=== PATIENT | female | born 1960 | race Caucasian/White ===

== ENCOUNTER 2024-10-30 05:31 | Day surgery (SDC) | payer OTHER, SELFPAY ==
[2024-10-21 14:14] VITALS: BMI 33.7
--- NOTE | 2024-10-21 14:21 | PC.NURSE ---
Report to the Outpatient Waiting Room, entrance under the green pavilion located off [facility], at time _0845_ on date _[id number]_. Planned Procedure Time: _1045_.? Time changes happen often and if your time is changed the preop area will call you the afternoon before. - You and your visitor will be asked to self-screen and do not enter if you have any COVID symptoms. Please call surgeon if you need to reschedule. - A mask is optional within the hospital at this time. Patients may have clear liquids (water, carbonated beverages, clear teas, apple juice) until 3 hours prior to surgery with a maximum of 20 ounces. - No food from midnight until time of surgery and no smoking, or chewing tobacco (or any form of nicotine). No chewing gum, candy or mints. Take only the following medications with a SIP of water on the morning of surgery: __Bupropion and Citalopram DO NOT STOP ANY OF YOUR OTHER PRESCRIPTION MEDICATIONS PRIOR TO SURGERY EXCEPT THE FOLLOWING Hold all vitamins and supplements for 3 days per anesthesiologist. Medications to discontinue per physician Date to take last [id number] Wakefield's office and inquire if need to hold Diclofenac. Please no make-up, nail marshallese, hairspray, perfume, deodorant, or body powder the day of surgery.? No jewelry (including any body piercings) or valuables the day of surgery, leave them at home.? Please take a shower or bath the night before, or the morning of, surgery with an antibacterial soap.? Wear comfortable, loose fitting clothing.? - Jewelry must be removed prior to entering the operating room.? Rings and piercings that are not removed may be cut off. - The hospital will not accept responsibility for valuables.? - Please leave all valuables, including medications, at home the day of surgery. If you are going home after surgery, a licensed company truck driver must drive you home.? - NO public transportation without another adult if you receive anesthesia. - We recommend that an adult stay with you for 24 hours following discharge. - We also recommend that you do not drive, make important decision, drink alcoholic beverages, or take any drugs that were not prescribed by your health care provider for at least 24 hours after your discharge time. Follow any additional instructions given to you from your surgeon. Telephone instructions given to __Mini___and asked if any additional questions and then verbalized understanding. Patient advised to call surgeon office or pre surgery nurse liaison [phone] if any additional questions.
--- NOTE | 2024-10-24 17:37 | PM.IMHP ---
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 Review of Systems Review of Systems: All systems reviewed & are unremarkable except as noted in HPI and below PMFSH Social History Social History Smoking packs per day: 1 Smoking cigarettes per day: 20.0 Years smoked: 20 Smoking pack-years: 20.00 Smoking status: Former smoker Tobacco type: cigarettes Smoking end date: 10/21/04 Alcohol intake: current Drinks per week: 5 Living arrangements: with family Spiritual care concerns: No Meds Home Medications and Allergies Home Medications ?Medication ?Instructions ?Recorded ?Confirmed ?Type atorvastatin 20 mg tablet 20 mg PO DAILY 10/21/24 10/21/24 History bupropion HCl 150 mg 24 hr tablet, 150 mg PO DAILY 10/21/24 10/21/24 History extended release citalopram 40 mg tablet 40 mg PO DAILY 10/21/24 10/21/24 History diclofenac sodium 75 mg 75 mg PO DAILY 10/21/24 10/21/24 History tablet,delayed release fezolinetant 45 mg tablet (Veozah) 45 mg PO DAILY 10/21/24 10/21/24 History lysine 1,000 mg tablet 1,000 mg PO DAILY 10/21/24 10/21/24 History gmthqveg-nhfi-yfqc 8 mg-folic 400 1 tablet PO DAILY 10/21/24 10/21/24 History mcg-K 50 mcg-lutein 300 mcg tablet (Centrum Silver Women) Allergies Allergy/AdvReac Type Severity Reaction Status Date / Time Penicillins Allergy Intermediate Rash Verified 10/21/24 14:11 Exam Narrative: NAD A+O x3 normal breathing Assessment and Plan Assessment and plan (1) Urge incontinence: Code(s): N39.41 - Urge incontinence Status: Acute Assessment and Plan: InterStim implant
--- NOTE | ~2024-10-30 | XR_ITS ---
XR fluoroscopy no charge Indication: Transsacral neurostimulator lead placement TECHNIQUE: Fluoroscopy used during Transsacral neurostimulator lead placement performed by [Jose Guadalupe Wakefield MD] on 10/30/2024. 24 seconds of fluoroscopy with 2 fluoroscopic images captured. FINDINGS: Correlate with procedure note. IMPRESSION: Fluoroscopy used during Transsacral neurostimulator lead placement. Reviewed, dictated and finalized at location L. LAB RADIOLOGY TECHNICIAN
--- OUTSIDE RECORDS SUMMARY | 2024-10-30 05:37 | XMS_ITS | Clinical Summary ---
Author Organization [facility] Address [address] [place] [address] Phone Care Team Providers Care Battery Parts Assembler Name Role Phone Saroj Glynn MD Primary Care Provider [phone] Allergies Active Allergy Reactions Criticality Noted Date Comments Penicillins Hives 06/04/2017 Medications sertraline (ZOLOFT) 100 MG Tablet Take 100 mg by mouth daily. Active traZODone (DESYREL) 50 MG Tablet Take 50 mg by mouth nightly. Active diclofenac (VOLTAREN) 75 MG Tablet Delayed Response Take 75 mg by mouth 3 times daily. Active solifenacin (VESICARE) 10 MG Tablet Take 10 mg by mouth daily. Active cyclobenzaprine (FLEXERIL) 10 MG Tablet Take 10 mg by mouth 3 times daily as needed for Muscle spasms. Active citalopram (CELEXA) 20 MG Tablet Take 40 mg by mouth daily. Active clotrimazole-be tamethasone (LOTRISONE) 1-0.05 % Cream Apply 2 times daily. . Active adapalene (DIFFERIN) 0.1 % Gel Apply nightly. use small amount as directed Active Polyethylene Glycol 3350 (MIRALAX PO) Take by mouth. Active Lysine Acetate 500 MG Tablet Take by mouth. Active Multiple Vitamins-Minera ls (OCUVITE PO) Take by mouth. Active Multiple Vitamins-Minera ls (MULTIVITAMIN PO) Take by mouth. Active Family History Medical History Relation Name Comments Cancer Maternal Grandfather Relation Name Status Comments Maternal Grandfather Social History Tobacco Use Types Packs/Day Years Used Date Smoking Tobacco: Former Smokeless Tobacco: Never Alcohol Use Standard Drinks/Week Comments Yes 0 (1 standard drink = 0.6 oz pur e alcohol) Comments No Sex and Gender Information Value Date Recorded Sex Assigned at Not on file Legal Sex Female 12:12 PM CDT Gender Identity Not on file Sexual Orientation Not on file Last Filed Vital Signs Vital Sign Reading Time Taken Comments Blood Pressure 116/70 06/10/2017 4:08 PM CDT Pulse 59 06/10/2017 4:08 PM CDT Temperature 36.6 C (97.9 F) 06/10/2017 4:08 PM CDT Respiratory Rate - - Oxygen Saturation 96% 06/10/2017 4:08 PM CDT Inhaled Oxygen Concentration - - Weight 90.7 kg (200 lb) 06/10/2017 4:08 PM CDT Height 160 cm (5' 3 ) 06/10/2017 4:08 PM CDT Body Mass Index 35.43 06/10/2017 4:08 PM CDT Plan of Treatment Health Maintenance Due Date Last Done Comments Hepatitis C Virus (HCV) Screening 1962 TdaP Immunization 1962 Pap Smear 11/24/1983 Cervical Cancer Screening (CCS) 1992 HPV/Cotest 1992 Colonoscopy 11/24/2007 Colorectal Cancer Screening 11/24/2007 Cologuard 2012 Immunochemical Fecal Occult Blood 2012 Mammogram 2012 Pneumococcal Immunization (5 0+ years) (1 of 1 - PCV) 2012 Zoster Immunization (1 of 2) 2012 Influenza Immunization (#1) 2024 SARS-COV-2 Immunization ( season) 2024 Respiratory Syncytial Virus (RSV) Immunization (Adult) (1 - 1-dose 75+ series) 2037 Hepatitis B Immunization Aged Out No longer eligible based on patient's age to complete this topic Meningococcal Immunization (ACWY) Aged Out No longer eligible based on patient's age to complete this topic Pneumococcal Immunization Combined Aged Out No longer eligible based on patient's age to complete this topic Rotavirus Immunization Aged Out No lo nger eligible based on patient's age to complete this topic Insurance [employer] Care Teams Battery Parts Assembler Relationship Specialty Start Date End Date Saroj Glynn MD [address] [address] PCP - General Family Medicine 06/04/17
--- OUTSIDE RECORDS SUMMARY | 2024-10-30 05:37 | XMS_ITS | Referral Summary ---
Author Organization [facility] Address [address] [place] [address] Care Team Providers Care Worksite Wellness Practitioner Name Role Phone Saroj Glynn MD Primary Care Provider [phone] Allergies Active Allergy Reactions Criticality Noted Date Comments Penicillins Hives Medium 06/04/2017 Medications multivitamin with minerals tabletIndicatio ns:Vitamin Deficiency Prevention Take 1 tablet by mouth every morning Active citalopram (CeleXA) 20 mg tabletIndicatio ns:Anxiety with Depression,israel r depressive disorder Take 20 mg by mouth every morning 3 04/18/2019 Active buPROPion XL (WELLBUTRIN XL) 150 mg 24 hr tabletIndicatio ns:Anxiety with Depression Take 150 mg by mouth every morning 09/05/[address] (VOLTAREN) 75 mg EC tabletIndicatio ns:Osteoarthrit is Take 75 mg by mouth every morning Active lysine 500 mg tabletIndicatio ns:prevents mouth sores Take 500 mg by mouth every morning Active vit C,T-Wt-mdcae-harjinder tein-zeaxan [id number] ss-eapy-kh-mg capsuleIndicati ons:eye health Take 1 capsule by mouth every morning Active HYDROcodone-silvia taminophen (NORCO) 5-325 mg per tabletIndicatio ns:Pain Take 1-2 tablets by mouth every 6 (six) hours as needed for pain 20 tablet 01/25/2020 Active Active Problems Problem Noted Date Diagnosed Date Meralgia paresthetica of left side 09/22/2019 Overview (09/22/2019): Added automatically from request for surgery [id number] Social History Tobacco Use Types Packs/Day Years Used Date Smoking Tobacco: Former Cigarettes 2 33 1 977 - 2010 Smokeless Tobacco: Never Alcohol Use Standard Drinks/Week Comments Yes 0 (1 standard drink = 0.6 oz pur e alcohol) SOCIAL AUDIT-C Answer Date Recorded Frequency of Alcohol Consumption Never 02/24/2019 Average Number of Drinks Not on file 019 Frequency of Binge Drinking Not on file 02/07 Comments No Sex and Gender Information Value Date Recorded Sex Assigned at Not on file 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 Gender Identity Not on file Sexual Orientation Not on file Last Filed Vital Signs Vital Sign Reading Time Taken Comments Blood Pressure 119/76 01/26/2020 1:20 PM CDT Pulse 67 01/26/2020 1:30 PM CDT Temperature 36.8 C (98.2 F) 01/26/2020 12:50 PM CDT Respiratory Rate 18 01/26/2020 1:30 PM CDT Oxygen Saturation 97% 01/26/2020 1:30 PM CDT Inhaled Oxygen Concentration - - Weight 81.2 kg (179 lb) 11/17/2019 4:15 PM CDT Height 162.6 cm (5' 4 ) 11/17/2019 4:15 PM CDT Body Mass Index 30.73 11/17/2019 4:15 PM CDT Plan of Treatment Not on file Insurance [facility] Care Teams Worksite Wellness Practitioner Relationship Specialty Start Date End Date Saroj Glynn MD [address] [place] [address] PCP - General Family Practice 09/19/18
--- OUTSIDE RECORDS SUMMARY | 2024-10-30 05:37 | XMS_ITS | Clinical Summary ---
Author Organization [facility] Address [address] [place] [address] Care Team Providers Care Special Education Superintendent Name Role Phone Saroj Glynn MD Primary Care Provider [phone] Allergies Active Allergy Reactions Criticality Noted Date [...] mg by mouth every morning Active vit C,C-Yw-txzdo-harjinder tein-zeaxan [id number] hg-gcol-zi-mg capsuleIndicati ons:eye health Take 1 capsule by mouth every morning Active HYDROcodone-silvia taminophen (NORCO) 5-325 mg per tabletIndicatio ns:Pain Take 1-2 tablets by mouth every 6 (six) hours as needed for pain 20 tablet 01/25/2020 Active Active Problems Problem Noted Date Diagnosed Date Meralgia paresthetica of left side 09/22/2019 Overview (09/22/2019): Added automatically from request for surgery [id number] Surgical History Surgery Date Site/Laterality Comments FL UPPER GI AIR CONTRAST W KUB 03/04/2019 Left FL UPPER GI AIR CONTRAST W KUB 05/18/2019 Left HEMORROIDECTOMY 08/21/2019 [facility] Medical History Medical History Date Comments Depression Family History Medical History Relation Name Comments Heart disease Brother Heart disease Father Alcohol abuse Mother Relation Name Status Comments Brother Father Mother Social History Tobacco Use Types Packs/Day Years [...] on file 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
[2024-10-30] MEDS: LACTATED RINGERS 1,000 ML 30 ML IV CONT (06:40)
[2024-10-30 06:58] VITALS: BP 110/54; PULSE 61; RESP 18; TEMP 36.1; O2SAT 98
--- NOTE | 2024-10-30 07:14 | WPDHPUPDATE1 ---
History and Physical Update Update Date/Time: 10/30/24 07:14 History and Physical has been reviewed, including an updated exam of the patient. There are NO changes in the patient's condition. Risks, benefits, and alternatives have been discussed and questions answered. Patient agrees to proceed with procedure.
--- NOTE | 2024-10-30 07:32 | P.PNAN_ITS ---
Anes - Initial Pre Proc Eval Procedure: Operation Date: 10/30/24 08:30 Proposed Procedures p Neurostimulator Implant - Minesh Wakefield MD Date/Time: 10/30/24 07:32 Surgeon: Minesh Wakefield MD Pre Op Diagnosis: jose thornton Patient Data Age: 63 Gender: F Height: 1.6 m Weight: 91.8 kg Last Vital Signs Temp 36.1 C L 10/30/24 06:58 Pulse 61 10/30/24 06:58 Resp 18 10/30/24 06:58 BP 110/54 L 10/30/24 06:58 Pulse Ox 98 10/30/24 06:58 O2 Del Method Room Air 10/30/24 06:58 Allergies Allergy/AdvReac Type Severity Reaction Status Date / Time Penicillins Allergy Intermediate Rash Verified 10/30/24 06:52 Home Medications ?Medication ?Instructions ?Recorded ?Confirmed ?Type atorvastatin 20 mg tablet 20 mg PO DAILY 10/21/24 10/30/24 History bupropion HCl 150 mg 24 hr tablet, 150 mg PO DAILY 10/21/24 10/30/24 History extended release citalopram 40 mg tablet 40 mg PO DAILY 10/21/24 10/30/24 History diclofenac sodium 75 mg 75 mg PO DAILY 10/21/24 10/30/24 History tablet,delayed release fezolinetant 45 mg tablet (Veozah) 45 mg PO DAILY 10/21/24 10/30/24 History lysine 1,000 mg tablet 1,000 mg PO DAILY 10/21/24 10/30/24 History yaernfho-hagj-cqsh 8 mg-folic 400 1 tablet PO DAILY 10/21/24 10/30/24 History mcg-K 50 mcg-lutein 300 mcg tablet (Centrum Silver Women) hydrocodone 5 mg-acetaminophen 325 1 tablet PO Q6H PRN pain #20 tabs 10/30/24 Rx mg tablet Patient hx anesthesia problems: none Family hx anesthesia problems: none Results Review: All pre-operative results and documents have been reviewed as part of the pre- operative evaluation. [facility] Past Medical History Medical History (Updated 10/30/24 @ 07:32 by Jas Gorman DO) ARTUR (obstructive sleep apnea) Social History Social History Smoking packs per day: 1 Smoking cigarettes per day: 20.0 Years smoked: 20 Smoking pack-years: 20.00 Smoking status: Former smoker Tobacco type: cigarettes Smoking end date: 10/21/04 Alcohol intake: current Drinks per week: 5 Living arrangements: with family Spiritual care concerns: No Anes - Eval Final PreProcedure Day of Procedure 10/30/24 07:32 Patient weight: obese Heart: regular rate and rhythm Lungs: clear to auscultation Airway: Mallampati scale class II Neurological: alert and oriented Last oral intake: >/= 8 hours ASA classification: III Emergent: no Anesthetic plan: proceed Anesthesia type and monitoring: general GIVS and standard monitoring Results Review: All pre-operative results and documents have been reviewed as part of the pre- operative evaluation. Informed Consent: The patient's anesthetic plan and its attendant risks and benefits were discussed with the patient/family/POA. Questions were solicited and answers prov ided to the satisfaction of the patient/family/POA.
[2024-10-30] MEDS: BUPIVACAINE/EPINEPHRINE 0.5% 30 ML VIAL INFILTRATE (07:52)
[2024-10-30] MEDS: ceFAZolin 2 GM/D5W 50 ML 2 GM/50 ML BAG IVPB (08:26)
[2024-10-30 08:54] VITALS: BP 106/50; PULSE 63; RESP 14; O2SAT 98
--- NOTE | 2024-10-30 09:09 | P.OP_ITS ---
Procedure Note - Detailed Date of Procedure 10/30/24 Pre-op Diagnosis urge incont Post-op Diagnosis Same Procedure Performed Implantation of sacral lead 83624 Placement of implantable pulse generator [id number] Complex neurostimulator programming impedance check [id number] Surgeon Minesh Wakefield MD Anesthesia MAC and Local Indications This is a patient with refractory urge urinary incontinence. They have undergone a successful trial of sacral nerve stimulation. They present today for permanent implantation. They understand the risks of bleeding, infection, decreased efficacy, need for revision and battery changes. They agree to proceed Findings See dictated Description of Procedure They were correctly identified and informed consent was obtained. There brought to the operating room. There placed in the prone position. There given appropriate perioperative antibiotics. A time-out performed. I used fluoroscopy to kathryn out my sacral landmarks in the AP and the lateral orientation. I anesthetized the skin. I entered the S3 foramen. I monitored the needle with fluoroscopy. I got appropriate Tien and toe response at a low threshold. I made a skin karsten. I placed a stylet. I placed the lead i ntroducer sheath. I thinned placed and deployed to my lead. I got appropriate responses again at a low threshold. I marked out the site of the pulse generator. I anesthetized the skin and made that incision. I created a subcutaneous pocket to house the pulse generator. I tunneled the lead towards this pocket. Appropriate connections were made between the lead and the battery. It was placed in the pocket. It was programmed and impedances were checked and found to be normal. I irrigated out all wounds. I ensured hemostasis. I closed the subcutaneous tissues with 2 Vicryl. I closed the skin with 4 0 Vicryl. Glue was applied. There then awakened and transferred to the PACU in stable condition. Implants Sacral neurostimulator Estimated Blood Loss 5 Drains No Packing No Pathology None sent Condition Stable Disposition PACU
[2024-10-30 09:10] VITALS: BP 102/53; PULSE 54; O2SAT 97
[2024-10-30 09:40] VITALS: BP 114/65; PULSE 53
== END 2024-10-30 10:14 | disposition home or self-care (01) ==
PROVIDERS: PCP Family Medicine; Visit Provider Urology
PROC: (CPT 64561; principal; 2024-10-30 08:30)
DX: N39.41 Urge incontinence (principal); N32.81 Overactive bladder; G47.33 Obstructive sleep apnea (adult) (pediatric); E66.9 Obesity, unspecified; Z68.35 Body mass index [BMI] 35.0-35.9, adult; Z79.891 Long term (current) use of opiate analgesic; Z87.891 Personal history of nicotine dependence
CPT/HCPCS: 64561; 64590; 99199; C1767; C1778; C1787; J0690; J1100; J2003; J2250; J2405; J2704; J3010; J7120